=== PATIENT | female | born 1955 | race Caucasian/White ===

== ENCOUNTER 2023-06-20 10:51 | Inpatient (IN) | payer BC, MEDICARE ==
[~2023-06-20] VITALS: Ht 170.2 cm; Wt 85.3 kg
[~2023-06-20 10:51] MED LIST: AMBIEN10 MG PO; BLACK COHOSH200 MG PO; BUPROBAN150 MG PO; CALCIUM CARBON500 MG PO; CYANOCOBAL1000 MCG/M IM; D-BIOTIN1 GM PO; GINKGO BILOBA120 MG PO; LEVAQUIN500 MG PO; MAGNESIUM OXID400 MG PO; TOPROL XL25 MG PO; VITAMIN D3400 UNIT PO; XARELTO20 MG PO
[2023-06-20] MEDS ORDERED: SODIUM CHLORIDE FLUSH 10 ML SYR IV PRN (11:15)
[2023-06-20 11:19] LABS: BASOPHILS % 0.5 % (0.0-1.0); EOSINOPHILS # (AUTO) 0.1 (0.0-0.4); EOSINOPHILS % 1.1 % (0.0-6.0); HEMATOCRIT 42.2 % (34.2-44.1); HEMOGLOBIN 13.8 g/dL (12.0-16.0); LYMPHOCYTES # (AUTO) 2.1 (1.0-3.2); LYMPHOCYTES % 33.6 % (18.0-39.1); MEAN CORPUSCULAR HEMOGLOBIN 32.1 pg (28-32); MEAN CORPUSCULAR HGB CONC 32.7 g/dL (31-35); MEAN CORPUSCULAR VOLUME 98.1 fL (81-99); MONOCYTES # (AUTO) 0.4 (0.2-0.8); MONOCYTES % 6.6 % (4.4-11.3); NEUTROPHILS # (AUTO) 3.7 (2.1-6.9); NEUTROPHILS % 57.9 % (38.7-80.0); PLATELET COUNT 238 x10e3/uL (140-360); RED CELL DISTRIBUTION WIDTH 13.2 % (11.7-14.4); WHITE BLOOD COUNT 6.37 x10e3/uL (4.8-10.8)
[2023-06-20 11:25] LABS: INR 1.79; PROTHROMBIN TIME 21.2 seconds (11.9-14.5)
[2023-06-20 11:26] LABS: PARTIAL THROMBOPLASTIN TIME 36.5 seconds (23.8-35.5)
[2023-06-20 11:33] LABS: ALBUMIN 4.2 g/dL (3.5-5.0); ALBUMIN/GLOBULIN RATIO 1.4 (0.8-2.0); ANION GAP 16.2 mmol/L (8-16); BILIRUBIN,TOTAL 1.1 mg/dL (0.2-1.2); CALCIUM 9.4 mg/dL (8.4-10.2); CREATININE, SERUM 1.05 mg/dL (0.57-1.11); POTASSIUM 4.2 mmol/L (3.5-5.1); TOTAL PROTEIN 7.1 g/dL (6.5-8.1)
[2023-06-20] MEDS ORDERED: IOPAMIDOL 370 MG/ML 100 ML INFUS..BTL INJ ONE (11:38)
[2023-06-20 11:39] LABS: TROPONIN I 0.019 ng/mL (0-0.300)
[2023-06-20] MEDS ORDERED: SODIUM CHLORIDE FLUSH 10 ML SYR INJ PRN (13:00)
[2023-06-20] MEDS ORDERED: ONDANSETRON HCL INJ 2MG/ML 2ML 2 MG/ML VIAL IV PRN (13:00)
[2023-06-20] MEDS ORDERED: ACETAMINOPHEN 325 MG TAB PO PRN (13:15)
[2023-06-20] MEDS: FUROSEMIDE INJ 10 MG/ML 4 ML VIAL IV SCH ×2 (13:37→22:27)
[2023-06-20 20:00] VITALS: BP 90/77; PULSE 92; RESP 20; TEMP 97.2; O2SAT 99
[2023-06-20] MEDS ORDERED: METOPROLOL SUCC25 MG PO (20:21)
[2023-06-20] MEDS ORDERED: PROVENTIL HFA6.7 GM INH (20:21)
[2023-06-20] MEDS ORDERED: EXEMESTANE25 MG PO (20:21)
[2023-06-20] MEDS ORDERED: XARELTO20 MG PO (20:23)
[2023-06-20] MEDS ORDERED: SERTRALINE HCL50 MG PO (20:23)
[2023-06-20] MEDS ORDERED: MELATONIN3 MG PO (20:30)
[2023-06-20 21:00] VITALS: BP 90/77; PULSE 92; RESP 20; TEMP 97.2; O2SAT 99
[2023-06-20] MEDS ORDERED: FUROSEMIDE INJ 10 MG/ML 4 ML VIAL IV SCH (21:00)
[2023-06-20] MEDS ORDERED: RIVAROXABAN 20 MG TABLET PO SCH (21:00)
[2023-06-20] MEDS: ZOLPIDEM TARTRATE 5 MG TAB PO SCH (22:28)
[2023-06-21] VITALS (7 sets, daily range): BP systolic 104–121; BP diastolic 63–78; PULSE 71–89; RESP 16–20; TEMP 97.2–98.3; O2SAT 94–100
[2023-06-21 05:36] LABS: BASOPHILS # (AUTO) 0.1 (0.0-0.1); BASOPHILS % 0.9 % (0.0-1.0); EOSINOPHILS # (AUTO) 0.2 (0.0-0.4); EOSINOPHILS % 2.7 % (0.0-6.0); HEMATOCRIT 40.8 % (34.2-44.1); HEMOGLOBIN 13.5 g/dL (12.0-16.0); LYMPHOCYTES # (AUTO) 2.2 (1.0-3.2); MEAN CORPUSCULAR HEMOGLOBIN 31.7 pg (28-32); MEAN CORPUSCULAR HGB CONC 33.1 g/dL (31-35); MEAN CORPUSCULAR VOLUME 95.8 fL (81-99); MONOCYTES # (AUTO) 0.6 (0.2-0.8); MONOCYTES % 8.8 % (4.4-11.3); NEUTROPHILS # (AUTO) 3.9 (2.1-6.9); NEUTROPHILS % 55.3 % (38.7-80.0); PLATELET COUNT 227 x10e3/uL (140-360); RED BLOOD COUNT 4.26 x10e6/uL (3.6-5.1); RED CELL DISTRIBUTION WIDTH 12.9 % (11.7-14.4); WHITE BLOOD COUNT 6.96 x10e3/uL (4.8-10.8)
[2023-06-21 05:57] LABS: ALBUMIN/GLOBULIN RATIO 1.4 (0.8-2.0); ANION GAP 16.5 mmol/L (8-16); BILIRUBIN,TOTAL 1.2 mg/dL (0.2-1.2); CALCIUM 9.1 mg/dL (8.4-10.2); CREATININE, SERUM 1.13 mg/dL (0.57-1.11); POTASSIUM 3.5 mmol/L (3.5-5.1); TOTAL PROTEIN 6.8 g/dL (6.5-8.1)
[2023-06-21] MEDS ORDERED: MAGNESIUM OXIDE 400 MG TAB PO SCH ×2 (09:00→21:00)
[2023-06-21] MEDS ORDERED: METOPROLOL SUCCINATE 25 MG TAB XL PO SCH ×2 (09:00→21:00)
[2023-06-21] MEDS ORDERED: CYANOCOBALAMIN INJ 1,000 MCG/ML VIAL IM SCH (09:00)
[2023-06-21] MEDS ORDERED: OYST-CAL-D 500MG TABLET PO SCH ×2 (09:00→21:00)
[2023-06-21] MEDS: LOSARTAN POTASSIUM 25 MG TAB PO SCH (10:19)
[2023-06-21] MEDS: FUROSEMIDE 40 MG TAB PO SCH ×2 (10:19→16:49)
[2023-06-21] MEDS ORDERED: POTASSIUM CHLORIDE 10MEQ EA PO ONE (11:00)
[2023-06-21] MEDS ORDERED: RIVAROXABAN 20 MG TABLET PO SCH (17:00)
[2023-06-21] MEDS: ZOLPIDEM TARTRATE 5 MG TAB PO SCH (21:00)
[2023-06-22 00:38] VITALS: BP 106/71; PULSE 71; RESP 17; TEMP 97.8; O2SAT 97
[2023-06-22 04:00] VITALS: BP 109/73; PULSE 79; RESP 18; TEMP 97.8; O2SAT 96
[2023-06-22 06:26] LABS: ALBUMIN 3.8 g/dL (3.5-5.0); ALBUMIN/GLOBULIN RATIO 1.2 (0.8-2.0); ANION GAP 16.6 mmol/L (8-16); CALCIUM 9.5 mg/dL (8.4-10.2); CREATININE, SERUM 1.03 mg/dL (0.57-1.11); POTASSIUM 3.6 mmol/L (3.5-5.1)
[2023-06-22 07:36] VITALS: BP 102/65; PULSE 86; RESP 17; TEMP 97.8; O2SAT 97
[2023-06-22 08:43] VITALS: BP 102/65; PULSE 86; RESP 17; TEMP 97.8; O2SAT 97
[2023-06-22] MEDS ORDERED: POTASSIUM CHLORIDE 10MEQ EA PO SCH (09:00)
[2023-06-22] MEDS: LOSARTAN POTASSIUM 25 MG TAB PO SCH (10:04)
[2023-06-22] MEDS: FUROSEMIDE 40 MG TAB PO SCH (10:04)
[2023-06-22 11:34] VITALS: BP 107/79; PULSE 86; RESP 19; TEMP 97.6; O2SAT 98
[2023-06-22] MEDS ORDERED: COZAAR25 MG PO ×2 (11:34→15:34)
[2023-06-22] MEDS ORDERED: FUROSEMIDE40 MG PO ×2 (11:34→15:34)
[2023-06-22] MEDS ORDERED: ONDANSETRON HCL 4 MG ORAL DISINTEGRATING TAB PO PRN (13:30)
== END 2023-06-22 14:00 | disposition home or self-care (01) | DRG 291 ==
LOC: ER 11:31 → ERHOLD 12:50 → MED/SURG2 19:40 → OBSVTOIN 06-21 08:42
PROVIDERS: ADMIT Internal Medicine; ATTEND Internal Medicine
DX: I11.0 Hypertensive heart disease with heart failure (principal); I50.21 Acute systolic (congestive) heart failure; I49.3 Ventricular premature depolarization; I08.0 Rheumatic disorders of both mitral and aortic valves; R13.10 Dysphagia, unspecified; F32.A Depression, unspecified; Z11.52 Encounter for screening for COVID-19; Z86.718 Personal history of other venous thrombosis and embolism; Z79.01 Long term (current) use of anticoagulants; Z85.3 Personal history of malignant neoplasm of breast; Z90.13 Acquired absence of bilateral breasts and nipples; Z92.3 Personal history of irradiation; Z79.69 Long term (current) use of other immunomodulators and immunosuppressants; Z79.899 Other long term (current) drug therapy
CPT/HCPCS: 36415; 71260; 80053; 83880; 84484; 85025; 85610; 85730; 93005; 93306; 94760; 99284; G0378; J1940; Q9967; U0002